=== PATIENT | male | born 1950 | race Caucasian/White ===

== ENCOUNTER 2017-07-17 13:30 | Emergency (ER) | payer MEDICARE, MEDICAID ==
[~2017-07-17] VITALS: Ht 152.4 cm; Wt 50.9 kg
[~2017-07-17 13:30] MED LIST: ATIVAN 1MG T1 MG/TAB PO; CLARITIN 1010 MG/TAB PO; DEPAKOTE ER 25250 MG PO; DILANTIN 100MG100 MG PO; DULCOLAX STOOL100 MG PO; FLOMAX 0.40.4 MG/CAP PO; FOSAMAX5 MG PO; LEVAQUIN 2250 MG/TAB PO; MIRALAX PA17 GM/Dose PO; OSCAL 500 TAB500 MG; PRISTIQ100 MG PO; ZYPREXA 5MG5 MG PO; ZYPREXA2.5 MG PO
[2017-07-17 13:41] VITALS: BP 175/98; TEMP 97.8
[2017-07-17 16:48] VITALS: PULSE 94
== END 2017-07-17 16:48 | disposition home or self-care (01) ==
LOC: COL.ER 13:30
DX: S42.032A Displaced fracture of lateral end of left clavicle, initial encounter for closed fracture (principal); S22.32XA Fracture of one rib, left side, initial encounter for closed fracture; W19.XXXA Unspecified fall, initial encounter

== ENCOUNTER 2018-04-26 05:03 | Emergency (ER) | payer MEDICARE, MEDICAID ==
[~2018-04-26] VITALS: Ht 165.1 cm; Wt 72.7 kg
[2018-04-26 05:10] VITALS: TEMP 97.1
[2018-04-26 07:00] VITALS: BP 131/76; PULSE 80
== END 2018-04-26 07:00 | disposition home or self-care (01) ==
LOC: COL.ER 05:03
DX: S01.01XA Laceration without foreign body of scalp, initial encounter (principal); F32.9 Major depressive disorder, single episode, unspecified; G40.909 Epilepsy, unspecified, not intractable, without status epilepticus; Z23 Encounter for immunization; W19.XXXA Unspecified fall, initial encounter; W22.8XXA Striking against or struck by other objects, initial encounter; Y92.009 Unspecified place in unspecified non-institutional (private) residence as the place of occurrence of the external cause

== ENCOUNTER 2023-02-19 15:16 | Outpatient (RCR) | payer MEDICARE, MEDICAID ==
[~2023-02-19 15:16] MED LIST changes: +ASPIRIN 81M81 MG/TA2 PO; +ATIVAN 0.50.5 MG/TAB PO; -ATIVAN 1MG T1 MG/TAB PO; +DEPAKOTE 250MG250 MG PO; -DEPAKOTE ER 25250 MG PO; +DEPAKOTE ER 50500 MG PO; +DEPAKOTE500 MG PO; +DULCOLAX TAB5 MG PO; +LIPITOR 40MG TA40 MG PO; +MUCINEX DM 30 M1 TE1 PO; +OS-CAL 500 + D1 TAB PO; +PLAVIX 75MG TAB75 MG PO; +REMERON 15M15 MG/TA1 PO; +SINEMET 25/101 UDTAB PO; +TYLENOL 325MG325 MG PO; -ZYPREXA2.5 MG PO; +ZYPREXA7.5 MG PO; +ZYRTEC 10MG10 MG PO
== END 2023-02-19 15:26 ==
LOC: MKS.ESL.PT 15:16
DX: I69.359 Hemiplegia and hemiparesis following cerebral infarction affecting unspecified side (principal)